=== PATIENT | female | born 1945 | race Two or more races ===

== ENCOUNTER 2023-12-28 17:06 | Inpatient (IN) | payer MEDICARE, OTHER ==
[~2023-12-28] VITALS: Ht 157.5 cm; Wt 68.6 kg
[~2023-12-28 17:06] MED LIST: ASPI81CH59 PO; ATOR10TA PO; CALCCAP6 PO; CARV3.1240 PO; CLON0.1T PO; DOCU-94 PO; FURO40TA4 PO; INSU100I45 SC; INSU1INJ19 SC; LOSA-535 PO; MULT-443 PO; SEVE800T10 PO; TICA90TA PO
[2023-12-28 17:18] VITALS: PULSE 141; RESP 16; O2SAT 96
[2023-12-28] MEDS: dilTIAZem 25 MG/5 ML VIAL IV ONE ×2 (17:18→17:47)
--- NOTE | 2023-12-28 17:26 | ED.PDOC ---
HPI Comments 78Y F with PMHx DM, HTN, ESRD, and COPD presents to ED via EMS for chief complaint palpitations. Per EMS, pt was at dialysis where they removed 500mL when pt became hypotensive with diastolic BP 31. Upon EMS arrival, EKG showed Afib with RVR. Family on scene is not aware of any previous dx of Afib. Pt denies chest pain, runny nose, sore throat, and all other flu-like symptoms. Pt is not on blood thinners. 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, Medications, Allergies Allergies: Coded Allergies: Amoxicillin (Verified Allergy, Unknown, 12/28/23) Clarithromycin (Verified Allergy, Unknown, 12/28/23) Information Source: Patient, Emergency Med Personnel Mode of Arrival: EMS Brought in by: EMS Severity: Severe Timing: Hours Duration: Since onset Prehospital treatment: 12 Lead EKG Cardiac Risk Factors: HTN, Diabetes PE Risk Factors: None History of: Other Modifying Factors: Nothing Associated Signs and Symptoms: Palpitations Past Medical History PAST MEDICAL HISTORY: COPD, DM, ESRD, HTN Surgical History: Unknown 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 Family History Family History: Unknown Social History Smoker: Unknown Alcohol: Unknown Drugs: Unknown Lives In: Home Constitutional: reports: weakness; denies: chills, diaphoresis, fatigue, fever, malaise, sweats, others EENTM: denies: blurred vision, double vision, ear bleeding, ear discharge, ear drainage, ear pain, ear ringing, eye pain, eye redness, hearing loss, mouth pain, mouth swelling, nasal discharge, nose bleeding, nose congestion, nose pain, photophobia, tearing, throat pain, throat swelling, voice changes, others Respiratory: denies: cough, hemoptysis, orthopnea, SOB at rest, shortness of breath, SOB with excertion, stridor, wheezing, others Cardiovascular: denies: chest pain, dizzy spells, diaphoresis, Dyspnea on exertion, edema, irregular heart beat, left arm pain, lightheadedness, palpitations, PND, syncope, others Gastrointestinal: denies: abdomen distended, abdominal pain, blood streaked bowels, constipated, diarrhea, dysphagia, difficulty swallowing, hematemesis, melena, nausea, poor appetite, poor fluid intake, rectal bleeding, rectal pain, vomiting, others Genitourinary: denies: abnormal vagina bleeding, burning, dyspareunia, dysuria, flank pain, frequency, hematuria, incontinence, pain, , vagina discharge, urgency, others Neurological: denies: dizziness, fainting, headache, left sided numbness, left sided weakness, numbness, paresthesia, pre-existing deficit, right sided numbness, right sided weakness, seizure, speech problems, tingling, tremors, weakness, others Musculoskeletal: denies: back pain, gout, joint pain, joint swelling, muscle pain, muscle stiffness, neck pain, others Integumetry: denies: bruises, change in color, change in hair/nails, dryness, laceration, lesions, lumps, rash, wounds, others Allergic/Immunocompromised: denies: Difficulty Healing, Frequent Infections, Hives, Itching, others Hematologic/Lymphatic: denies: anemia, blood clots, easy bleeding, easy bruising, swollen glands, others Endocrine: denies: excessive hunger, excessive sweating, excessive thirst, excessive urination, flushing, intolerance to cold, intolerance to heat, unexplained weight gain, unexplained weight loss, others Psychiatric: denies: anxiety, bipolar disorder, depression, hopeless, panic disorder, schizophrenia, sleepless, suicidal, others All Other Systems: Reviewed and Negative Physical Exam General Appearance: No Apparent Distress, Normal, Thin, Other HEENT: Normal ENT Inspection, Pharynx Normal, TMs Normal Neck: Full Range of Motion, Non-Tender, Normal, Normal Inspection Respiratory: Chest Non-Tender, Lungs Clear, No Accessory Muscle Use, No Respiratory Distress, Normal Breath Sounds Cardiovascular: No Edema, No JVD, No Murmur, No Gallop, Normal Peripheral Pulses, Tachycardia Breast Exam: Deferred Gastrointestinal: No Organomegaly, Non Tender, No Pulsatile Mass, Normal Bowel Sounds, Soft Genitalia: Deferred Pelvic: Deferred Rectal: Deferred Extremities: No calf tenderness, Normal capillary refill, Normal inspection, Normal range of motion, Non-tender, No pedal edema Musculoskeletal : Apperance: Normal Neurologic: Alert, treater helper II-XII nml as Tested, No Motor Deficits, Normal Affect, Normal Mood, No Sensory Deficits Cerebellar Function: Normal Reflexes: Normal Skin: Dry, Other (ashy cantu skin color) Lymphatic: No Adenopathy EKG EKG : Pulse Rate (adult): 61 [place]: Normal Cardiac Rhythm: Afib Comments significant ST depressions in all leads Was a procedure done? Was a procedure done?: No CP Differential Dx Differential Diagnosis: A-fib X-Ray, Labs, Meds, VS Vital Signs Date Time Temp Pulse Resp B/P (MAP) Pulse Ox O2 Delivery O2 Flow Rate FiO2 12/28/23 17:26 61 12/28/23 17:18 98.2 141 16 94/24 (47) 96 98.2 12/28/23 17:18 141 16 96 Room Air* 0 21 12/28/23 17:12 98.2 152 22 96/45 (62) 96 12/28/23 17:06 161 Lab Test 12/28/23 17:29 Range/Units Sodium Level 134 L 136-145 mmol/L Potassium Level 3.3 L 3.5-5.1 mmol/L Chloride Level 97 L 98-107 mmol/L Carbon Dioxide Level 28 20-31 mmol/L Anion Gap 9 5-15 Blood Urea Nitrogen 9 9-23 mg/dL Creatinine 2.09 H 0.550-1.02 mg/dL Glomerular Filtration Rate Calc 24 >90 mL/min BUN/Creatinine Ratio 4.3 L 10.0-20.0 Serum Glucose 175 H 74-106 mg/dL Calcium Level 9.5 8.7-10.4 mg/dL Magnesium Level 2.1 1.6-2.6 mg/dL Total Bilirubin 0.3 0.2-1.0 mg/dL Aspartate Amino Transferase (AST) 29 13-40 U/L Alanine Aminotransferase (ALT) < 9 7-40 U/L Alkaline Phosphatase 148 H 46-116 U/L Troponin I High Sensitivity 99 *H </=34 ng/L Total Protein 7.0 5.7-8.2 g/dL Albumin 3.9 3.2-4.8 g/dL Thyroid Stimulating Hormone (TSH) Pending Current Medications Medications (Trade) Dose Ordered Sig/Jens Route Start Time Stop Time Status Last Admin Diltiazem HCl (Cardizem Injection) 15 mg ONCE ONCE IV 12/28/23 17:15 12/28/23 17:16 DC 12/28/23 17:18 Diltiazem HCl (Cardizem Injection) 15 mg ONCE ONCE IV 12/28/23 17:30 12/28/23 17:31 DC 12/28/23 17:47 Time of 1ST Reevaluation: 17:40 Reevaluation 1ST: Unchanged Time of 2ND Reevaluation: 18:00 Reevaluation 2ND: Improved Patient Education/Counseling: Diagnosis, Treatment Family Education/Counseling: No Family Present Departure 1 Departure Time of Disposition: 18:00 Impression: Primary Impression: Atrial fibrillation with RVR Additional Impression: Hypokalemia Disposition: ADMITTED INPATIENT Admit to: [facility] Condition: Guarded Critical Care Note Critical Care Time?: Yes (35 min-critical care time only) Critical care comment: Patient was immediately assessed upon her arrival to the ER. As she was found to be in AFib RVR. Patient was given diltiazem IV. She required multiple reassessments and multiple doses of diltiazem due to her continuous AFib. I placed her on diltiazem drip. At this time chemistries returned with mild hypokalemia at 3.3 otherwise unremarkable. CBC is pending. However at this time patient would benefit from inpatient admission. Hospitalist consult has been placed. Stability Stability form required: No Heart Score Heart Score: Heart Score Response (Comments) Value History Slightly Suspicious 0 EKG Repolarization Disturb 1 Age >65 2 Risk Factors >3 or Hx ASHD 2 Troponin 1-2 x's Normal limit 1 Total 6 I personally scribed for FAITH BUTLER MD ([email or web address]) on 12/28/23 at 17:26. Electronically submitted by Samira Bonds ([email or web address]). I personally scribed for FAITH BUTLER MD ([email or web address]) on 12/28/23 at 17:28. Electronically submitted by Samira Bonds ([employer]). FAITH BUTLER MD Dec 28, 2023 17:26
[2023-12-28 18:00] LABS: Albumin 3.9 g/dL (3.2-4.8); Alkaline Phosphatase 148 U/L (46-116); Anion Gap 9 (5-15); Aspartate Aminotransferase 29 U/L (13-40); BUN/Creatinine Ratio 4.3 (10.0-20.0); Bilirubin, Total 0.3 mg/dL (0.2-1.0); Blood Urea Nitrogen 9 mg/dL (9-23); Calcium 9.5 mg/dL (8.7-10.4); Carbon Dioxide 28 mmol/L (20-31); Chloride 97 mmol/L (98-107); Glucose 175 mg/dL (74-106); Magnesium 2.1 mg/dL (1.6-2.6); Potassium 3.3 mmol/L (3.5-5.1); Sodium 134 mmol/L (136-145)
[2023-12-28 18:06] LABS: Alanine Aminotransferase < 9 U/L (7-40)
--- NOTE | 2023-12-28 18:27 | DVH ---
EXAM: XY CHEST PORTABLE TECHNIQUE: Single frontal chest radiograph CLINICAL HISTORY: chest pain COMPARISON: None Findings/Impression: Frontal chest radiograph demonstrates no acute osseous or superficial soft tissue abnormalities. The trachea is midline. Mild cardiomegaly. No pneumothorax, pleural effusions, or consolidations.
[2023-12-28] MEDS: dilTIAZem 125mg/125ml BAG KIT 125 ML IV ONE (18:34)
[2023-12-28 18:42] LABS: Basophils # (auto) 0.1 10 ^3/uL (0-0.2); Basophils % (auto) 0.4 % (0.0-2.0); Eosinophils # (auto) 0.1 10 ^3/uL (0-0.8); Eosinophils % (auto) 0.6 % (0.0-7.0); Hematocrit 30.1 % (36.0-46.0); Hemoglobin 10.1 g/dL (12.2-16.2); Lymphocytes # (auto) 0.8 10 ^3/uL (0.4-5.4); Lymphocytes % (auto) 4.9 % (10.0-50.0); Mean Corpuscular Hgb Conc. 33.7 g/dL (32.0-36.0); Monocytes # (auto) 0.8 10 ^3/uL (0-1.3); Monocytes % (auto) 5.4 % (0.0-12.0); Neutrophils # (auto) 13.9 10 ^3/uL (1.6-8.6); Neutrophils % (auto) 88.7 % (37.0-80.0); Platelet Count (auto) 325 10^3/uL (140-450); Red Blood Cells 3.27 10^6/uL (4.0-5.20); White Blood Cell 15.6 10^3/uL (4.4-10.8)
[2023-12-28] MEDS: AMIODARONE BOLUS KIT 100 ML IV ONE (18:51)
[2023-12-28] MEDS: AMIODARONE 450mg/250ml AE 250 ML IV SCH (19:00)
[2023-12-28 20:26] VITALS: PULSE 130; RESP 21; O2SAT 100
[2023-12-28] MEDS ORDERED: DOCUSATE SOD 100 MG CAP PO PRN (21:15)
[2023-12-28] MEDS ORDERED: HYDROcodone-ACET 5/325MG TAB PO PRN (21:15)
[2023-12-28] MEDS ORDERED: hydrALAZINE HCL 20 MG/ML VL IV PRN (21:15)
[2023-12-28] MEDS: POTASSIUM CHL 20 Meq TABLET PO ONE (21:15)
[2023-12-28] MEDS ORDERED: VANCOMYCIN PER PHARMACY 0 MG IV SCH (21:15)
[2023-12-28] MEDS ORDERED: DEXTROSE (50%) 50ML SYRG IV PRN (21:15)
[2023-12-28] MEDS ORDERED: ONDANSETRON HCL 4 MG/2 ML VIAL IV PRN (21:15)
[2023-12-28] MEDS: ASPirin 81 mg TAB PO ONE (21:41)
[2023-12-28] MEDS ORDERED: VANCOMYCIN 1GM/200ML PREMIX 200 ML IV ONE (21:45)
[2023-12-28] MEDS: METOPROLOL TARTRATE 25 MG TAB PO SCH (21:48)
[2023-12-28] MEDS: VANCOMYCIN 1GM/200ML PREMIX 200 ML IV ONE (21:53)
[2023-12-28] MEDS: SODIUM CHLOR 0.9% PF (SALINE LOCK) 10ML VIAL/SYR IV SCH (21:54)
[2023-12-28] MEDS: ACCU-CHEK COMFORT CURVE STRIP VI SCH (21:57)
[2023-12-28] MEDS: InsuLIN REG 1unit/0.01ml Soln (100units/ml) SC SCH (22:23)
[2023-12-28] MEDS: METOPROLOL TARTRATE 1MG/1ML-5ML VIAL IV SCH (22:50)
[2023-12-28] MEDS ORDERED: NITROGLYCERIN 0.4 MG SL TAB SL PRN (23:15)
[2023-12-28] MEDS ORDERED: MORPHINE SULFATE INJ 2 MG/ml SYRG IV PRN (23:15)
--- NOTE | 2023-12-28 23:17 | DVHHP2 ---
History of Present Illness Reason for Visit: Atrial fibrillation with RVR History of Present Illness The patient is a 78 years old female past medical history of DM, COPD, hypertension, and ESRD on hemodialysis who presented to [facility] ED with complaint of palpitations. Patient was at dialysis today where they removed 500 mL and suddenly became hypotensive with diastolic BP at 31 so EMS were called. When division controller arrived on the scene, patient's EKG showed atrial fibrillation with RVR, en route to our facility. Patient was seen and evaluated in the ED, laboratory data shows WBC 15.6, hemoglobin 10.1, hematocrit 30.1 platelets 325, sodium 134, potassium 3.3, BUN 9, creatinine 2.09, glucose 175, troponin 220 trending up, TSH 2.06, blood pressure 130/59, heart rate 161 trending down to 112, temperature 98.2 F, O2 saturation 99% on oxygen. Chest x- ray shows no acute cardiopulmonary disease. Patient was started on amiodarone drip, on heparin drip, please see medication orders section in the computer. On my assessment, patient denies chest no headache, dizziness, no diaphoresis, no shortness of breaths, no nausea, no vomiting, no fever, no chills. Patient was admitted for further evaluation and medical management. Past Medical History COPD, DM, ESRD on HD, HTN Past Surgical History Dialysis access Family History Reviewed, noncontributory to the management of this case. Past Social History The patient lives at home, denies smoking, alcohol or illicit drugs abuse. Review of Systems Constitutional: Yes: Weakness; No: Fever, Chills, Sweats, Malaise, Other Eyes: No: Pain, Vision change, Conjunctivae inflammation, Eyelid inflammation, Other, Redness ENT: No: Ear pain, Ear discharge, Nose pain, Nose discharge, Nose congestion, Mouth pain, Mouth swelling, Throat pain, Throat swelling, Other Respiratory: No: Cough, Dry, Shortness of breath, SOB with excertion, Wheezing, Hemoptysis, Pleuritic Pain, Sputum, Wheezing, Other Cardiovascular: Palpitations; No: Chest Pain, Orthopnea, Paroxysmal Noc. Dyspnea, Edema, Lt Headedness, Other Gastrointestinal: No: Nausea, Vomiting, Abdominal Pain, Diarrhea, Constipation, Melena, Hematochezia, Other Genitourinary: No Dysuria, No Frequency, No Incontinence, No Hematuria, No Retention, No Other Musculoskeletal: No: other, neck pain, shoulder pain, arm pain, back pain, hand pain, leg pain, foot pain Skin: No: Rash, Lesions, Jaundice, Bruising, Other Neurological: No: Weakness, Numbness, Incoordination, Change in speech, Confusion, Seizures, Other Allergies: Coded Allergies: Amoxicillin (Verified Allergy, Unknown, 12/28/23) Clarithromycin (Verified Allergy, Unknown, 12/28/23) Medications Current Medications Medications Dose Ordered Sig/Jens Route Start Time Stop Time Status Last Admin Dose Admin Amiodarone HCl 250 ml @ 33.333 mls/ hr Q7H30M IV 12/28/23 19:00 12/29/23 00:59 12/28/23 19:00 33.333 MLS/HR Amiodarone HCl 250 ml @ 16.667 mls/ hr Q15H IV 12/29/23 01:00 Hydralazine HCl 10 mg Q6HP PRN IV 12/28/23 21:15 Metoprolol Tartrate 25 mg BID PO 12/28/23 22:00 12/28/23 21:48 25 MG Aspirin 81 mg DAILY PO 12/29/23 10:00 Vancomycin HCl 0 ml @ 0 mls/hr UD IV 12/28/23 21:15 UNV Diagnostic Test (Pha) 1 strip ACHS 12/28/23 22:00 12/28/23 21:57 1 STRIP Insulin Human Regular HS SC 12/28/23 22:00 12/28/23 22:23 6 UNITS Insulin Human Regular AC SC 12/29/23 07:00 Dextrose 50 ml UD PRN IV 12/28/23 21:15 Sodium Chloride 10 ml Q8HR IV 12/28/23 22:00 12/28/23 21:54 10 ML Acetaminophen/ Hydrocodone Bitart 1 tab Q4HP PRN PO 12/28/23 21:15 Ondansetron HCl 4 mg Q4HP PRN IV 12/28/23 21:15 Docusate Sodium 100 mg BIDPRN PRN PO 12/28/23 21:15 Acetaminophen 650 mg Q6HP PRN PO 12/28/23 21:15 Exam Vital Signs Vital Signs Date Time Temp Pulse Resp B/P (MAP) Pulse Ox O2 Delivery O2 Flow Rate FiO2 12/28/23 23:15 115 133/70 12/28/23 22:07 15 100 12/28/23 21:00 98.8 98.8 12/28/23 20:26 Room Air* 3 N/A Nasal Cannula* General Appearance: Alert, Oriented X3, Cooperative, No acute distress HEENT: Atraumatic, PERRLA, EOMI, Mucous membr. moist/pink Respiratory: Clear to auscultation, Normal air movement Cardiovascular: Regular rate, Normal S1, Normal S2, No murmurs Abdominal: Normal bowel sounds, Soft, No tenderness, No hepatospenomegaly, No masses Extremities: No clubbing, No cyanosis, No edema, Normal pulses, No tenderness/swelling Skin: No rashes, No breakdown, No significant lesion Neuro: Normal speech, Normal tone, Sensation intact, Cranial nerves 3-12 NL, Reflexes 2+, Other (Generalized weakness) Psych/Mental Status: Mental status NL, Mood NL Labs/Xrays Labs Test 12/28/23 21:57 12/28/23 20:39 12/28/23 18:23 12/28/23 17:29 Range/Units POC Glucose 273 H 70-106 mg/dl Troponin I High Sensitivity 1318 *H </=34 ng/L White Blood Count 15.6 H 4.4-10.8 10^3/uL Red Blood Count 3.27 L 4.0-5.20 10^6/uL Hemoglobin 10.1 L 12.2-16.2 g/dL Hematocrit 30.1 L 36.0-46.0 % Mean Corpuscular Volume 92.0 80.0-100.0 fL Mean Corpuscular Hemoglobin 31.0 28.0-32.0 pg Mean Corpuscular Hemoglobin Concent 33.7 32.0-36.0 g/dL Red Cell Distribution Width 16.0 H 11.8-14.3 % Platelet Count 325 140-450 10^3/uL Mean Platelet Volume 7.1 6.9-10.8 fL Neutrophils (%) (Auto) 88.7 H 37.0-80.0 % Lymphocytes (%) (Auto) 4.9 L 10.0-50.0 % Monocytes (%) (Auto) 5.4 0.0-12.0 % Eosinophils (%) (Auto) 0.6 0.0-7.0 % Basophils (%) (Auto) 0.4 0.0-2.0 % Neutrophils # (Auto) 13.9 H 1.6-8.6 10 ^3/uL Lymphocytes # (Auto) 0.8 0.4-5.4 10 ^3/uL Monocytes # (Auto) 0.8 0-1.3 10 ^3/uL Eosinophils # (Auto) 0.1 0-0.8 10 ^3/uL Basophils # (Auto) 0.1 0-0.2 10 ^3/uL Nucleated Red Blood Cells 0.0 % Sodium Level 134 L 136-145 mmol/L Potassium Level 3.3 L 3.5-5.1 mmol/L Chloride Level 97 L 98-107 mmol/L Carbon Dioxide Level 28 20-31 mmol/L Anion Gap 9 5-15 Blood Urea Nitrogen 9 9-23 mg/dL Creatinine 2.09 H 0.550-1.02 mg/dL Glomerular Filtration Rate Calc 24 >90 mL/min BUN/Creatinine Ratio 4.3 L 10.0-20.0 Serum Glucose 175 H 74-106 mg/dL Calcium Level 9.5 8.7-10.4 mg/dL Magnesium Level 2.1 1.6-2.6 mg/dL Total Bilirubin 0.3 0.2-1.0 mg/dL Aspartate Amino Transferase (AST) 29 13-40 U/L Alanine Aminotransferase (ALT) < 9 7-40 U/L Alkaline Phosphatase 148 H 46-116 U/L Total Protein 7.0 5.7-8.2 g/dL Albumin 3.9 3.2-4.8 g/dL Thyroid Stimulating Hormone (TSH) 2.06 0.55-4.78 uIU/mL PATIENT: SARAH LOWERYACCT: [id number] UNIT: [id number] : 1945 LOC: ER ROOM / BED: / AGE / SEX: 78 / F ADM STATUS: REG ER SERVICE [id number] ORDERING PHYSICIAN: FAITH BUTLER MD PROCEDURE(s): CXRP - CHEST PORTABLE REASON: chest pain ORDER NUMBER(s): [id number], ACCESSION NUMBER(s): [id number] EXAM: XY CHEST PORTABLE TECHNIQUE: Single frontal chest radiograph CLINICAL HISTORY: chest pain COMPARISON: None Findings/Impression: Frontal chest radiograph demonstrates no acute osseous or superficial soft tissue abnormalities. The trachea is midline. Mild cardiomegaly. No pneumothorax, pleural effusions, or consolidations. Assessment/Plan Assessment/Plan Atrial fibrillation with RVR Hypokalemia Generalized weakness Leukocytosis, unspecified End-stage renal disease on hemodialysis Plan 1. Admit to telemetry unit 2. Breathing treatment 3. Pain control management 4. IV antibiotic management 5. Management of fluids and electrolytes 6. Consultation for Cardiology/Nephrology 7. Diagnostic test chest x-ray 8. DVT prophylaxis-on Eliquis 9. Repeat labs CBC, CMP in a.m. 10. Home medication reviewed and reconciled 11. Continue with current medical management 12. Treatment plan discussed with patient and RN. Patient verbalized understanding. Plan discussed with: Patient, Other (RN) My Orders Orders - AIRAM BRISENO DNP Procedure Category Date Status Time Consistent DIET 12/29/23 Transmitted Carb(Ccho)Diabetes Breakfast *Dr. Allie Zepeda -Da CONS 12/28/23 Transmitted Fabiola 21:09 Hydralazine Injection PHA 12/28/23 In Process (Apresoline Inject 21:15 Blood Culture RHODA 12/28/23 In Process 21:09 Metoprolol Tartrate PHA 12/28/23 In Process Tablet (Lopressor Ta 22:00 Aspirin Tablet PHA 12/29/23 In Process 10:00 Troponin-I Hs LAB 12/29/23 Verified 00:09 Troponin-I Hs LAB 12/29/23 Verified 04:00 Vancomycin Per PHA 12/28/23 Pending Pharmacy 21:15 * Cardiology Consult CONS 12/28/23 Transmitted 21:09 Glucose Blood PHA 12/28/23 In Process (Accu-Chek Comfort 22:00 Insulin R (Human) PHA 12/28/23 In Process (Insulin R) 22:00 Insulin R (Human) PHA 12/29/23 In Process (Insulin R) 07:00 Dextrose 50% Syringe PHA 12/28/23 In Process 21:15 Allergies HENOK 12/28/23 In Process 21:09 Code Status CODE 12/28/23 Transmitted 21:09 Sodium Chloride Lock PHA 12/28/23 In Process (Saline Lock Ns) 22:00 Oxygen Per Hour RT 12/28/23 Transmitted 21:09 Hydrocodone-Acet PHA 12/28/23 In Process 5/325mg Tab ([place] 21:15 Ondansetron Hcl PHA 12/28/23 In Process (Zofran) 21:15 Docusate Sodium [facility] 12/28/23 In Process Capsule (Colace 21:15 Fall Risk Precautions [facility] 12/28/[address] 21:09 Complete Blood Count LAB 12/29/23 Verified 04:00 Comprehensive LAB 12/29/23 Verified Metabolic Panel 04:00 Condition: Serious HENOK 12/28/23 In Process 21:09 Acetaminophen Tablet [facility] 12/28/23 In Process (Tylenol Tablet) 21:15 Sequential [facility] 12/28/23 In Process Compression Device Admit ADMIT 12/28/23 Verified 23:15 Nitroglycerin [facility] 12/28/23 Verified Sublingual (Ntrostat 23:15 Morphine Sulfate [facility] 12/28/23 Verified Injection 23:15 Stat Ekg For Chest [facility] 12/28/23 Verified Pain 23:15 Automatic Head Sawyer For [facility] 12/28/23 Verified 24 Hours 23:15 Emergency Dysrhythmia [facility] 12/28/23 Verified Protocol 23:15 Rhythm Strips Once [facility] 12/28/23 Verified Every Shift 23:15 Oxygen By Nasal RT 12/28/23 Verified Cannula 23:15 Problem List: (1) Atrial fibrillation with RVR (2) Hypokalemia (3) Generalized weakness (4) Leukocytosis, unspecified (5) End-stage renal disease on hemodialysis Date of Service: Dec 28, 2023 Billing Provider: AIRAM BRISENO DNP Common Visit Codes: 24180-OCSOXYD INP/OBS CARE (HIGH) AIRAM BRISENO DNP Dec 28, 2023 23:16
[2023-12-29] VITALS (7 sets, daily range): BP systolic 115–154; BP diastolic 38–71; PULSE 76–122; RESP 18–20; TEMP 97.8–98.7; O2SAT 94–100
[2023-12-29] MEDS: DIGOXIN (250MCG/ML) 2 ML AMPULE IV ONE (00:30)
[2023-12-29] MEDS: AMIODARONE 450mg/250ml AE 250 ML IV SCH (01:09)
--- NOTE | 2023-12-29 02:18 | ECG ---
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
[2023-12-29 02:58] LABS: Basophils # (auto) 0.1 10 ^3/uL (0-0.2); Basophils % (auto) 0.6 % (0.0-2.0); Eosinophils # (auto) 0 10 ^3/uL (0-0.8); Eosinophils % (auto) 0.2 % (0.0-7.0); Hematocrit 30.2 % (36.0-46.0); Lymphocytes # (auto) 1.5 10 ^3/uL (0.4-5.4); Lymphocytes % (auto) 9.1 % (10.0-50.0); Mean Corpuscular Hemoglobin 30.7 pg (28.0-32.0); Mean Corpuscular Hgb Conc. 33.1 g/dL (32.0-36.0); Mean Corpuscular Volume 92.8 fL (80.0-100.0); Monocytes # (auto) 1.3 10 ^3/uL (0-1.3); Monocytes % (auto) 7.7 % (0.0-12.0); Neutrophils # (auto) 14.1 10 ^3/uL (1.6-8.6); Neutrophils % (auto) 82.4 % (37.0-80.0); Platelet Count (auto) 292 10^3/uL (140-450); Red Blood Cells 3.25 10^6/uL (4.0-5.20); Red Cell Distribution Width 16.3 % (11.8-14.3); White Blood Cell 17.1 10^3/uL (4.4-10.8)
[2023-12-29 03:13] LABS: INR 1.11 (0.9-1.15); Prothrombin Time 11.7 sec (9.3-11.8)
[2023-12-29] MEDS: HEPARIN DRIP/D5W 100UNITS/ML 250 ML IV SCH ×3 (03:56→23:43)
[2023-12-29] MEDS ORDERED: HEPARIN SODIUM (PORCINE) 5000 UNITS/ML 1ML VIAL IV ONE (04:00)
[2023-12-29] MEDS: HEPARIN SODIUM (PORCINE) 5000 UNITS/ML 1ML VIAL IV ONE (04:01)
[2023-12-29] MEDS: ACETAMINOPHEN 325 MG TAB PO PRN (04:51)
[2023-12-29] MEDS: InsuLIN REG 1unit/0.01ml Soln (100units/ml) SC SCH (06:29)
[2023-12-29 07:16] LABS: Basophils # (auto) 0.1 10 ^3/uL (0-0.2); Basophils % (auto) 0.4 % (0.0-2.0); Eosinophils # (auto) 0.1 10 ^3/uL (0-0.8); Eosinophils % (auto) 0.7 % (0.0-7.0); Hematocrit 29.6 % (36.0-46.0); Hemoglobin 9.6 g/dL (12.2-16.2); Lymphocytes # (auto) 1.7 10 ^3/uL (0.4-5.4); Lymphocytes % (auto) 10.3 % (10.0-50.0); Mean Corpuscular Hemoglobin 30.7 pg (28.0-32.0); Mean Corpuscular Hgb Conc. 32.4 g/dL (32.0-36.0); Mean Corpuscular Volume 94.9 fL (80.0-100.0); Monocytes # (auto) 1.3 10 ^3/uL (0-1.3); Monocytes % (auto) 7.7 % (0.0-12.0); Neutrophils # (auto) 13.5 10 ^3/uL (1.6-8.6); Neutrophils % (auto) 80.9 % (37.0-80.0); Nucleated Red Blood Cells % 0.1 %; Platelet Count (auto) 284 10^3/uL (140-450); Red Blood Cells 3.12 10^6/uL (4.0-5.20); Red Cell Distribution Width 16.2 % (11.8-14.3); White Blood Cell 16.6 10^3/uL (4.4-10.8)
[2023-12-29 07:43] LABS: Alanine Aminotransferase 66 U/L (7-40); Albumin 3.9 g/dL (3.2-4.8); Alkaline Phosphatase 145 U/L (46-116); Anion Gap 11 (5-15); Aspartate Aminotransferase 117 U/L (13-40); BUN/Creatinine Ratio 5.2 (10.0-20.0); Blood Urea Nitrogen 15 mg/dL (9-23); Calcium 9.4 mg/dL (8.7-10.4); Carbon Dioxide 27 mmol/L (20-31); Chloride 96 mmol/L (98-107); Glucose 206 mg/dL (74-106); Potassium 3.7 mmol/L (3.5-5.1); Sodium 134 mmol/L (136-145)
[2023-12-29 07:44] LABS: Bilirubin, Total 0.2 mg/dL (0.2-1.0); Total Protein 7.5 g/dL (5.7-8.2)
--- NOTE | 2023-12-29 08:44 | ECG ---
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
[2023-12-29 09:24] LABS: Magnesium 1.9 mg/dL (1.6-2.6)
[2023-12-29] MEDS: ASPirin 81 mg TAB PO SCH (09:52)
--- NOTE | 2023-12-29 10:29 | DVHINCON2 ---
Date Seen: Dec 29, 2023 Referring Physician ÁLVARO Leo Reason for Consultation A-fib with RVR History of Present Illness This is a Hebrew-speaking mostly female who presented to the emergency room via EMS with a chief complaint hemodynamic instability. At time of assessment patient was found A&O x3 but unable to recall events preceding to admission. Per daughter over the phone, the patient was receiving a hemodialysis treatment when she was found with a fluctuating blood pressure and heart rate for which medical staff called 911. Upon EMS arrival the patient was found to be tachycardic undergoing a 12 lead electrocardiogram revealing an atrial fibrillation rhythm with rapid ventricular rate. Daughter denies a history of tachyarrhythmias in the past. Reports a recent admission to [facility] with the patient underwent emergent cardiac catheterization and coronary angiogram status post PTCA including one AZUL and currently on dual antiplatelet therapy with Brilinta. Follows up with primary [facility] in [place], [place]. Troponin levels are trending up with latest > 6,000 ng/L. Multiple 12 lead electrocardiogram revealing atrial fibrillation rhythm with rapid ventricular rate and non-discernible ischemia present. C/o left hand pain only. Denies chest pain, palpitations, SOB, diaphoresis, dizziness, or syncopal events. Significant medical history includes unspecified congestive heart failure, severe coronary artery disease status post PTCAs x 3 including 3DES, hypertension, dyslipidemia, insulin-dependent diabetes mellitus, ESRD on hemodialysis, and peripheral neuropathy. Past Medical History Past medical history reviewed. No other significant than mentioned above. Past Surgical History PTCAs x3 including 3 AZUL Left upper extremity AV fistula Family History: Patient reports no known family medical history. Family History Family history reviewed. Social History Denies the use of illicit drugs, alcohol, or tobacco use. Allergies: Coded Allergies: Amoxicillin (Verified Allergy, Unknown, 12/28/23) Clarithromycin (Verified Allergy, Unknown, 12/28/23) Home Meds Home medications reviewed. Current Medications Current Medications Medications (Trade) Dose Ordered Sig/Jens Route PRN Reason Start Time Stop Time Status Last Admin Amiodarone HCl 250 ml @ 33.333 mls/ hr Q7H30M IV 12/28/23 19:00 12/29/23 00:59 DC 12/28/23 19:00 Amiodarone HCl 250 ml @ 16.667 mls/ hr Q15H IV 12/29/23 01:00 12/29/23 01:09 Hydralazine HCl (Apresoline Injection) 10 mg Q6HP PRN IV SBP>150 12/28/23 21:15 Metoprolol Tartrate (Lopressor Tablet) 25 mg BID PO 12/28/23 22:00 12/29/23 09:53 Aspirin 81 mg DAILY PO 12/29/23 10:00 12/29/23 09:52 Vancomycin HCl 0 ml @ 0 mls/hr UD IV 12/28/23 21:15 Diagnostic Test (Pha) (Accu-Chek Comfort Curve T) 1 strip ACHS 12/28/23 22:00 12/28/23 21:57 Insulin Human Regular (InsuLIN R) HS SC 12/28/23 22:00 12/28/23 22:23 Insulin Human Regular (InsuLIN R) AC SC 12/29/23 07:00 12/29/23 06:29 Dextrose 50 ml UD PRN IV Blood Sugar LESS THAN 60 12/28/23 21:15 Sodium Chloride (Saline Lock Ns) 10 ml Q8HR IV 12/28/23 22:00 12/29/23 06:20 Acetaminophen/ Hydrocodone Bitart ([place] 5/325MG Tab) 1 tab Q4HP PRN PO MODERATE PAIN (4-6 PAIN SCALE) 12/28/23 21:15 Ondansetron HCl (Zofran) 4 mg Q4HP PRN IV NAUSEA / VOMITING 12/28/23 21:15 Docusate Sodium (Colace Capsule) 100 mg BIDPRN PRN PO FOR CONSTIPATION 12/28/23 21:15 Acetaminophen (Tylenol Tablet) 650 mg Q6HP PRN PO PAIN SCALE 1-3 OR TEMP>100.4 12/28/23 21:15 12/29/23 04:51 Metoprolol Tartrate (Lopressor) 5 mg Q5M IV 12/28/23 22:45 12/28/23 22:56 DC 12/28/23 22:55 Nitroglycerin (Ntrostat Sublingual) 0.4 mg Q5MINP PRN SL FOR CHEST PAIN 12/28/23 23:15 Morphine Sulfate 2 mg Q30M PRN IV FOR CHEST PAIN 12/28/23 23:15 Heparin Sodium/ Dextrose 250 ml @ 8 mls/hr Q24H IV 12/29/23 02:30 12/29/23 03:56 Review of Systems Constitutional: No symptom reported Ears, Nose, & Throat: No symptom reported Eyes: No symptom reported Neurological: No symptoms reported Pulmonary/Respiratory: No symptom reported Cardiovascular: No symptom reported Gastrointestinal: No symptom reported Genitourinary: No symptom reported Musculoskeletal: Left hand pain Skin: No symptom reported Psychiatric: No symptom reported Endocrine: No symptom reported Hemotologic/Lymphatic: No symptom reported Vital Signs Vital Signs Date Time Temp Pulse Resp B/P (MAP) Pulse Ox O2 Delivery O2 Flow Rate FiO2 12/29/23 09:53 109 154/71 12/29/23 02:30 19 95 Nasal Cannula* 3 32 12/28/23 23:47 98.7 98.7 Physical Exam General Appearance: Cooperative. Well developed. Well nourished. In no acute distress Head Exam: Normal inspection Neck Exam: Normal inspection. Non-tender. Normal alignment Pulmonary/Respiratory: Chest non-tender. Diminished bilateral breath sounds Cardiovascular/Chest: Irregularly irregular rate and rhythm. Atrial fibrillation with RVR. No murmurs. No JVD. Peripheral Pulses: 2+ Radial (R). 2+ Radial (L). 2+ Pedal (R). 2+ Pedal (L) Abdominal Exam: Normal bowel sounds. Soft. Nontender. No hepatospenomegaly. No masses Ankle Exam: Negative ankle edema Lower extremities: Negative lower extremity edema Neuro/Mental Status: A&O x3. Coherent, poor historian Thoughts/Psych: Normal thought pattern. Appropriate mood and affect. Pleasant Appearance: In no acute distress Skin Exam: Normal inspection. Normal color. Warm. Dry Labs/Diagnostic Data Labs Test 12/29/23 10:05 12/29/23 06:30 12/29/23 05:35 12/28/23 17:29 Range/Units White Blood Count 16.6 H 4.4-10.8 10^3/uL Red Blood Count 3.12 L 4.0-5.20 10^6/uL Hemoglobin 9.6 L 12.2-16.2 g/dL Hematocrit 29.6 L 36.0-46.0 % Mean Corpuscular Volume 94.9 80.0-100.0 fL Mean Corpuscular Hemoglobin 30.7 28.0-32.0 pg Mean Corpuscular Hemoglobin Concent 32.4 32.0-36.0 g/dL Red Cell Distribution Width 16.2 H 11.8-14.3 % Platelet Count 284 140-450 10^3/uL Mean Platelet Volume 7.6 6.9-10.8 fL Neutrophils (%) (Auto) 80.9 H 37.0-80.0 % Lymphocytes (%) (Auto) 10.3 10.0-50.0 % Monocytes (%) (Auto) 7.7 0.0-12.0 % Eosinophils (%) (Auto) 0.7 0.0-7.0 % Basophils (%) (Auto) 0.4 0.0-2.0 % Neutrophils # (Auto) 13.5 H 1.6-8.6 10 ^3/uL Lymphocytes # (Auto) 1.7 0.4-5.4 10 ^3/uL Monocytes # (Auto) 1.3 0-1.3 10 ^3/uL Eosinophils # (Auto) 0.1 0-0.8 10 ^3/uL Basophils # (Auto) 0.1 0-0.2 10 ^3/uL Nucleated Red Blood Cells 0.1 % Sodium Level 134 L 136-145 mmol/L Potassium Level 3.7 3.5-5.1 mmol/L Chloride Level 96 L 98-107 mmol/L Carbon Dioxide Level 27 20-31 mmol/L Anion Gap 11 5-15 Blood Urea Nitrogen 15 9-23 mg/dL Creatinine 2.87 #H 0.550-1.02 mg/dL Glomerular Filtration Rate Calc 16 >90 mL/min BUN/Creatinine Ratio 5.2 L 10.0-20.0 Serum Glucose 206 H 74-106 mg/dL Calcium Level 9.4 8.7-10.4 mg/dL Magnesium Level 1.9 1.6-2.6 mg/dL Total Bilirubin 0.2 0.2-1.0 mg/dL Aspartate Amino Transferase (AST) 117 H 13-40 U/L Alanine Aminotransferase (ALT) 66 H 7-40 U/L Alkaline Phosphatase 145 H 46-116 U/L B-Type Natriuretic Peptide 843.81 0-100 pg/mL Total Protein 7.5 5.7-8.2 g/dL Albumin 3.9 3.2-4.8 g/dL Triglycerides Level 189 H < 150 mg/dL Cholesterol Level 144 < 200 mg/dL LDL Cholesterol 79 < 100 mg/dL HDL Cholesterol 32 L 40-59 mg/dL Random Vancomycin Level 17.0 H 5-10 ug/mL POC Glucose 189 H 70-106 mg/dl Thyroid Stimulating Hormone (TSH) 2.06 0.55-4.78 uIU/mL Assessment Atrial fibrillation with rapid ventricular rate, new onset NSTEMI, likely type 2 secondary to above Chronic compensated congestive heart failure, unspecified Coronary artery disease status post PTCA x3 AZUL Hypertension Dyslipidemia Insulin-dependent diabetes mellitus ESRD on HD Obesity Plan/Recommendation (Dr. Keller) Patient presents with new onset atrial fibrillation with rapid ventricular rate. Continue amiodarone drip per pharmacy protocol as well as heparin drip ([id number] Score 7, HAS-BLED Score 3) and transition to low-dose Eliquis therapy when appropriate. Continue single-antiplatelet therapy with Brilinta, lipid lowering agent, and beta-floyd given history of CAD with recent stent placement three weeks ago. Rate control, continue beta-floyd as tolerated and obtain a transthoracic echocardiogram to further assess cardiac function. Likely NSTEMI Type II as the patient presents with newly diagnosed tachyarrhythmia and cardiac symptom free with no discernible ischemia on ECG. Monitor ECG changes closely and notify. Continue nephrology recommendations. Thank you for allowing us to participate in this patient's care. Please call if you have any questions or concerns. This medical document was created using an electronic medical record system with voice recognition software and computerized dictation system. Although this document has been carefully reviewed, there might still be some phonetic and typographical errors. Occasional wrong-word or ``sound-alike substitutions may have occurred due to the inherent limitations of voice recognition software. These areas are purely typographical due to imperfections of the software programs and do not reflect any compromise in the patient's medical care. Please read the chart carefully and recognize, using context, where these substitutions have occurred. Plan discussed with: Patient, Daughter, Other Date of Service: Dec 29, 2023 Billing Provider: MICHAEL KELLER MD Cardiology Common Codes: 63784-[id number] INP/OBS CARE (High) RADHARAHEEMCARLY [facility] Dec 29, 2023 10:29
[2023-12-29 11:18] LABS: INR 1.06 (0.9-1.15); Partial Thromboplastin Time 42.6 SEC (24.5-34.5); Prothrombin Time 11.2 sec (9.3-11.8)
[2023-12-29] MEDS: TICAGRELOR 90 MG TAB PO ONE (11:30)
--- NOTE | 2023-12-29 12:47 | DVHINCON2 ---
Date of service: Dec 29, 2023 Referring Physician Ahmet Magallanes Reason for Consultation Dialysis History of Present Illness 78 Y/O F with history of ESRD on HD via left arm AVF, DM,HTN, COPD, and anemia of CKD was sent from dialysis center for hypotension during dialysis. In ER he was found to have Afib with RVR and was started on amiodarone drip and heparin drip. troponin initially 99 which has uptrended to 6679. CXR shows clear lungs. Nephrology consulted for maintenance of dialysis. Past Medical History ESRD on HD DM HTN COPD Anemia Past Surgical History AVF creation on left arm Allergies: Coded Allergies: Amoxicillin (Verified Allergy, Unknown, 12/28/23) Clarithromycin (Verified Allergy, Unknown, 12/28/23) Current Medications Current Medications Medications (Trade) Dose Ordered Sig/Jens Route PRN Reason Start Time Stop Time Status Last Admin Amiodarone HCl 250 ml @ 33.333 mls/ hr Q7H30M IV 12/28/23 19:00 12/29/23 00:59 DC 12/28/23 19:00 Amiodarone HCl 250 ml @ 16.667 mls/ hr Q15H IV 12/29/23 01:00 12/29/23 01:09 Hydralazine HCl (Apresoline Injection) 10 mg Q6HP PRN IV SBP>150 12/28/23 21:15 Metoprolol Tartrate (Lopressor Tablet) 25 mg BID PO 12/28/23 22:00 12/29/23 09:53 Aspirin 81 mg DAILY PO 12/29/23 10:00 12/29/23 09:52 Vancomycin HCl 0 ml @ 0 mls/hr UD IV 12/28/23 21:15 Diagnostic Test (Pha) (Accu-Chek Comfort Curve T) 1 strip ACHS 12/28/23 22:00 12/29/23 11:31 Insulin Human Regular (InsuLIN R) HS SC 12/28/23 22:00 12/28/23 22:23 Insulin Human Regular (InsuLIN R) AC SC 12/29/23 07:00 12/29/23 12:22 Dextrose 50 ml UD PRN IV Blood Sugar LESS THAN 60 12/28/23 21:15 Sodium Chloride (Saline Lock Ns) 10 ml Q8HR IV 12/28/23 22:00 12/29/23 06:20 Acetaminophen/ Hydrocodone Bitart ([place] 5/325MG Tab) 1 tab Q4HP PRN PO MODERATE PAIN (4-6 PAIN SCALE) 12/28/23 21:15 Ondansetron HCl (Zofran) 4 mg Q4HP PRN IV NAUSEA / VOMITING 12/28/23 21:15 Docusate Sodium (Colace Capsule) 100 mg BIDPRN PRN PO FOR CONSTIPATION 12/28/23 21:15 Acetaminophen (Tylenol Tablet) 650 mg Q6HP PRN PO PAIN SCALE 1-3 OR TEMP>100.4 12/28/23 21:15 12/29/23 04:51 Metoprolol Tartrate (Lopressor) 5 mg Q5M IV 12/28/23 22:45 12/28/23 22:56 DC 12/28/23 22:55 Nitroglycerin (Ntrostat Sublingual) 0.4 mg Q5MINP PRN SL FOR CHEST PAIN 12/28/23 23:15 Morphine Sulfate 2 mg Q30M PRN IV FOR CHEST PAIN 12/28/23 23:15 Heparin Sodium/ Dextrose 250 ml @ 8 mls/hr Q24H IV 12/29/23 02:30 12/29/23 03:56 Ticagrelor (Brilinta) 90 mg BID PO 12/29/23 22:00 Family History: Patient reports no known family medical history. Review of Systems As per HPI, all other systems were reviewed and are negative H&P Exam Vital Signs/I&O Vital Sign Date Time Temp Pulse Resp B/P (MAP) Pulse Ox O2 Delivery O2 Flow Rate FiO2 12/29/23 09:53 109 154/71 12/29/23 02:30 19 95 Nasal Cannula* 3 32 12/28/23 23:47 98.7 98.7 Intake and Output 12/28/23 12/29/23 19:00 07:00 Intake Total 116 ml Balance 116 ml Intake Oral 0 ml IV Total 116 ml Physical Exam Gen: NAD HEENT: NC, AT Lungs: CTA b/l Cardiac: RRR, no murmur Abd: soft, no distention Ext: no edema + Left arm AVR, + thrill Labs/Diagnostic Data Labs/Diagnostic Data Laboratory Tests Test 12/29/23 11:35 12/29/23 10:05 12/29/23 06:30 12/29/23 05:35 Range/Units POC Glucose 252 H 189 H 70-106 mg/dl Prothrombin Time 11.2 9.3-11.8 sec Prothrombin Time INR 1.06 0.9-1.15 Activated Partial Thromboplast Time 42.6 H 24.5-34.5 SEC Hemoglobin A1c 8.4 H <5.7 % A1C Troponin I High Sensitivity 6679 *H 6445 *H </=34 ng/L White Blood Count 16.6 H 4.4-10.8 10^3/uL Red Blood Count 3.12 L 4.0-5.20 10^6/uL Hemoglobin 9.6 L 12.2-16.2 g/dL Hematocrit 29.6 L 36.0-46.0 % Mean Corpuscular Volume 94.9 80.0-100.0 fL Mean Corpuscular Hemoglobin 30.7 28.0-32.0 pg Mean Corpuscular Hemoglobin Concent 32.4 32.0-36.0 g/dL Red Cell Distribution Width 16.2 H 11.8-14.3 % Platelet Count 284 140-450 10^3/uL Mean Platelet Volume 7.6 6.9-10.8 fL Neutrophils (%) (Auto) 80.9 H 37.0-80.0 % Lymphocytes (%) (Auto) 10.3 10.0-50.0 % Monocytes (%) (Auto) 7.7 0.0-12.0 % Eosinophils (%) (Auto) 0.7 0.0-7.0 % Basophils (%) (Auto) 0.4 0.0-2.0 % Neutrophils # (Auto) 13.5 H 1.6-8.6 10 ^3/uL Lymphocytes # (Auto) 1.7 0.4-5.4 10 ^3/uL Monocytes # (Auto) 1.3 0-1.3 10 ^3/uL Eosinophils # (Auto) 0.1 0-0.8 10 ^3/uL Basophils # (Auto) 0.1 0-0.2 10 ^3/uL Nucleated Red Blood Cells 0.1 % Sodium Level 134 L 136-145 mmol/L Potassium Level 3.7 3.5-5.1 mmol/L Chloride Level 96 L 98-107 mmol/L Carbon Dioxide Level 27 20-31 mmol/L Anion Gap 11 5-15 Blood Urea Nitrogen 15 9-23 mg/dL Creatinine 2.87 #H 0.550-1.02 mg/dL Glomerular Filtration Rate Calc 16 >90 mL/min BUN/Creatinine Ratio 5.2 L 10.0-20.0 Serum Glucose 206 H 74-106 mg/dL Calcium Level 9.4 8.7-10.4 mg/dL Magnesium Level 1.9 1.6-2.6 mg/dL Total Bilirubin 0.2 0.2-1.0 mg/dL Aspartate Amino Transferase (AST) 117 H 13-40 U/L Alanine Aminotransferase (ALT) 66 H 7-40 U/L Alkaline Phosphatase 145 H 46-116 U/L B-Type Natriuretic Peptide 843.81 0-100 pg/mL Total Protein 7.5 5.7-8.2 g/dL Albumin 3.9 3.2-4.8 g/dL Triglycerides Level 189 H < 150 mg/dL Cholesterol Level 144 < 200 mg/dL LDL Cholesterol 79 < 100 mg/dL HDL Cholesterol 32 L 40-59 mg/dL Random Vancomycin Level 17.0 H 5-10 ug/mL Test 12/29/23 02:36 12/29/23 00:57 12/28/23 21:57 12/28/23 20:39 Range/Units White Blood Count 17.1 H 4.4-10.8 10^3/uL Red Blood Count 3.25 L 4.0-5.20 10^6/uL Hemoglobin 10.0 L 12.2-16.2 g/dL Hematocrit 30.2 L 36.0-46.0 % Mean Corpuscular Volume 92.8 80.0-100.0 fL Mean Corpuscular Hemoglobin 30.7 28.0-32.0 pg Mean Corpuscular Hemoglobin Concent 33.1 32.0-36.0 g/dL Red Cell Distribution Width 16.3 H 11.8-14.3 % Platelet Count 292 140-450 10^3/uL Mean Platelet Volume 7.5 6.9-10.8 fL Neutrophils (%) (Auto) 82.4 H 37.0-80.0 % Lymphocytes (%) (Auto) 9.1 L 10.0-50.0 % Monocytes (%) (Auto) 7.7 0.0-12.0 % Eosinophils (%) (Auto) 0.2 0.0-7.0 % Basophils (%) (Auto) 0.6 0.0-2.0 % Neutrophils # (Auto) 14.1 H 1.6-8.6 10 ^3/uL Lymphocytes # (Auto) 1.5 0.4-5.4 10 ^3/uL Monocytes # (Auto) 1.3 0-1.3 10 ^3/uL Eosinophils # (Auto) 0 0-0.8 10 ^3/uL Basophils # (Auto) 0.1 0-0.2 10 ^3/uL Nucleated Red Blood Cells 0.0 % Prothrombin Time 11.7 9.3-11.8 sec Prothrombin Time INR 1.11 0.9-1.15 Activated Partial Thromboplast Time 27.7 24.5-34.5 SEC Troponin I High Sensitivity 4762 *H 1318 *H </=34 ng/L POC Glucose 273 H 70-106 mg/dl Test 12/28/23 18:23 12/28/23 17:29 Range/Units White Blood Count 15.6 H 4.4-10.8 10^3/uL Red Blood Count 3.27 L 4.0-5.20 10^6/uL Hemoglobin 10.1 L 12.2-16.2 g/dL Hematocrit 30.1 L 36.0-46.0 % Mean Corpuscular Volume 92.0 80.0-100.0 fL Mean Corpuscular Hemoglobin 31.0 28.0-32.0 pg Mean Corpuscular Hemoglobin Concent 33.7 32.0-36.0 g/dL Red Cell Distribution Width 16.0 H 11.8-14.3 % Platelet Count 325 140-450 10^3/uL Mean Platelet Volume 7.1 6.9-10.8 fL Neutrophils (%) (Auto) 88.7 H 37.0-80.0 % Lymphocytes (%) (Auto) 4.9 L 10.0-50.0 % Monocytes (%) (Auto) 5.4 0.0-12.0 % Eosinophils (%) (Auto) 0.6 0.0-7.0 % Basophils (%) (Auto) 0.4 0.0-2.0 % Neutrophils # (Auto) 13.9 H 1.6-8.6 10 ^3/uL Lymphocytes # (Auto) 0.8 0.4-5.4 10 ^3/uL Monocytes # (Auto) 0.8 0-1.3 10 ^3/uL Eosinophils # (Auto) 0.1 0-0.8 10 ^3/uL Basophils # (Auto) 0.1 0-0.2 10 ^3/uL Nucleated Red Blood Cells 0.0 % Troponin I High Sensitivity 220 *H 99 *H </=34 ng/L Sodium Level 134 L 136-145 mmol/L Potassium Level 3.3 L 3.5-5.1 mmol/L Chloride Level 97 L 98-107 mmol/L Carbon Dioxide Level 28 20-31 mmol/L Anion Gap 9 5-15 Blood Urea Nitrogen 9 9-23 mg/dL Creatinine 2.09 H 0.550-1.02 mg/dL Glomerular Filtration Rate Calc 24 >90 mL/min BUN/Creatinine Ratio 4.3 L 10.0-20.0 Serum Glucose 175 H 74-106 mg/dL Calcium Level 9.5 8.7-10.4 mg/dL Magnesium Level 2.1 1.6-2.6 mg/dL Total Bilirubin 0.3 0.2-1.0 mg/dL Aspartate Amino Transferase (AST) 29 13-40 U/L Alanine Aminotransferase (ALT) < 9 7-40 U/L Alkaline Phosphatase 148 H 46-116 U/L Total Protein 7.0 5.7-8.2 g/dL Albumin 3.9 3.2-4.8 g/dL Thyroid Stimulating Hormone (TSH) 2.06 0.55-4.78 uIU/mL Assessment Assessment: ESRD on HD via Left arm AVF Afib with RVR Elevated troponin HTN COPD Anemia of CKD Metabolic acidosis Leukocytosis Hyponatremia Hypokalemia Plan: Next HD likely on Saturday on amiodarone drip on Heparin drip Continue Metoprolol 25 mg PO BID Cardiology consult JO post HD as needed to maintain MAP > 65 mmHg on empirical IV antibiotics Plan discussed with: Patient, Other TOR ALBERTS MD Dec 29, 2023 12:47
[2023-12-29] MEDS: MAGNESIUM SULFATE 1GM/100ML 100 ML IV ONE (14:52)
[2023-12-29] MEDS: METOPROLOL TARTRATE 1MG/1ML-5ML VIAL IV ONE (14:59)
[2023-12-29] MEDS ORDERED: METOPROLOL TARTRATE 1MG/1ML-5ML VIAL IV ONE ×3 (18:00→18:15)
[2023-12-29] MEDS: VANCOMYCIN 500 MG in D5W 5% 100 ML IV ONE (18:32)
[2023-12-29 20:23] LABS: INR 1.07 (0.9-1.15); Partial Thromboplastin Time 38.7 SEC (24.5-34.5); Prothrombin Time 11.3 sec (9.3-11.8)
[2023-12-29] MEDS: TICAGRELOR 90 MG TAB PO SCH (22:30)
--- NOTE | 2023-12-29 23:12 | DVHPN2 ---
Subjective The patient is seen and examined at bedside. No complaint today. Reviewed: Care Plan, H&P, Labs, Medications, Previous Orders, Radiology Changes from previous H/P or p: No Changes Eyes: No Pain, No Vision change, No Conjunctivae inflammation, No Eyelid inflammation, No Other, No Redness ENT: No Ear pain, No Ear discharge, No Nose pain, No Nose discharge, No Nose congestion, No Mouth pain, No Mouth swelling, No Throat pain, No Throat swelling, No Other Cardiovascular: No Chest Pain; Palpitations; No Orthopnea, No Paroxysmal Noc. Dyspnea, No Edema, No Lt Headedness, No Other Respiratory: No Cough, No Dry, No Shortness of breath, No SOB with excertion, No Wheezing, No Hemoptysis, No Pleuritic Pain, No Sputum, No Other Gastrointestinal: No Nausea, No Vomiting, No Abdominal Pain, No Diarrhea, No Constipation, No Melena, No Hematochezia, No Other Genitourinary: No Dysuria, No Frequency, No Incontinence, No Hematuria, No Retention, No Other Musculoskeletal: No other, No neck pain, No shoulder pain, No arm pain, No back pain, No hand pain, No leg pain, No foot pain Skin: No Rash, No Lesions, No Jaundice, No Bruising, No Other Objective Vitals Vital Signs Date Time Temp Pulse Resp B/P (MAP) Pulse Ox O2 Delivery O2 Flow Rate FiO2 12/29/23 21:14 98.7 76 19 115/38 (63) 100 98.7 12/29/23 19:30 Nasal Cannula* 3 32 Intake/Output Intake and Output 12/29/23 07:00 Intake Total 116 ml Balance 116 ml Intake Oral 0 ml IV Total 116 ml General Appearance: Alert, Cooperative, No acute distress HEENT: Atraumatic, PERRLA, EOMI, Mucous membr. moist/pink Neck: Supple Lungs: Clear to auscultation, Normal air movement Cardiovascular: Regular rate, Normal S1, Normal S2, No murmurs, Gallops, Rubs Abdomen: Normal bowel sounds, Soft, No tenderness Extremities: No tenderness/swelling Neuro: Cranial nerves 3-12 NL Psych/Mental Status: Mental status NL Medications Current Medications Medications Dose Ordered Sig/Jens Route Start Time Stop Time Status Last Admin Dose Admin Amiodarone HCl 250 ml @ 16.667 mls/ hr Q15H IV 12/29/23 01:00 12/29/23 16:19 16.667 MLS/HR Hydralazine HCl 10 mg Q6HP PRN IV 12/28/23 21:15 Metoprolol Tartrate 25 mg BID PO 12/28/23 22:00 12/29/23 09:53 25 MG Aspirin 81 mg DAILY PO 12/29/23 10:00 12/29/23 09:52 81 MG Vancomycin HCl 0 ml @ 0 mls/hr UD IV 12/28/23 21:15 Diagnostic Test (Pha) 1 strip ACHS 12/28/23 22:00 12/29/23 18:12 1 STRIP Insulin Human Regular HS SC 12/28/23 22:00 12/28/23 22:23 6 UNITS Insulin Human Regular AC SC 12/29/23 07:00 12/29/23 18:12 6 UNITS Dextrose 50 ml UD PRN IV 12/28/23 21:15 Sodium Chloride 10 ml Q8HR IV 12/28/23 22:00 12/29/23 14:39 10 ML Acetaminophen/ Hydrocodone Bitart 1 tab Q4HP PRN PO 12/28/23 21:15 Ondansetron HCl 4 mg Q4HP PRN IV 12/28/23 21:15 Docusate Sodium 100 mg BIDPRN PRN PO 12/28/23 21:15 Acetaminophen 650 mg Q6HP PRN PO 12/28/23 21:15 12/29/23 04:51 650 MG Nitroglycerin 0.4 mg Q5MINP PRN SL 12/28/23 23:15 Morphine Sulfate 2 mg Q30M PRN IV 12/28/23 23:15 Ticagrelor 90 mg BID PO 12/29/23 22:00 Heparin Sodium/ Dextrose 250 ml @ 12 mls/hr [id number] IV 12/29/23 21:15 Laboratory Results Laboratory Tests 12/29/23 06:30 Chemistry Test 12/29/23 06:30 Albumin 3.9 g/dL (3.2-4.8) Calcium Level 9.4 mg/dL (8.7-10.4) Magnesium Level 1.9 mg/dL (1.6-2.6) Total Protein 7.5 g/dL (5.7-8.2) Coagulation Test 12/29/23 02:36 12/29/23 10:05 12/29/23 19:45 Prothrombin Time 11.7 sec (9.3-11.8) 11.2 sec (9.3-11.8) 11.3 sec (9.3-11.8) Prothrombin Time INR 1.11 (0.9-1.15) 1.06 (0.9-1.15) 1.07 (0.9-1.15) Activated Partial Thromboplast Time 27.7 SEC (24.5-34.5) 42.6 SEC (24.5-34.5) H 38.7 SEC (24.5-34.5) H Lipid panel Test 12/29/23 06:30 Cholesterol Level 144 mg/dL (< 200) HDL Cholesterol 32 mg/dL (40-59) L Triglycerides Level 189 mg/dL (< 150) H Cardiac Markers Test 12/29/23 06:30 B-Type Natriuretic Peptide 843.81 pg/mL (0-100) LFT Test 12/29/23 06:30 Alanine Aminotransferase (ALT) 66 U/L (7-40) H Alkaline Phosphatase 145 U/L (46-116) H Aspartate Amino Transferase (AST) 117 U/L (13-40) H Total Bilirubin 0.2 mg/dL (0.2-1.0) HgA1c, TSH Test 12/29/23 10:05 Hemoglobin A1c 8.4 % A1C (<5.7) H Microbiology Microbiology Date/Time Source Procedure Growth Status 12/29/23 06:40 Nose MRSA Screen - Final Complete Labs and/or images reviewed: Labs reviewed by me Assessment/Plan Assessment/Plan Atrial fibrillation with RVR Hypokalemia Generalized weakness Leukocytosis, unspecified End-stage renal disease on hemodialysis Continuing current management. Continuing with and amiodarone drip. Replace potassium as needed. PT to get the patient out of bed and ambulate. Continuing dialysis per schedule. Plan discussed with: Patient My Orders Orders - JOB DEAN MD Procedure Category Date Status Time Code Status CODE 12/29/23 Transmitted 13:38 Date of Service: Dec 29, 2023 Billing Provider: JOB DEAN MD Common Visit Codes: 25588-[id number] INP/OBS CARE(HIGH) JOB DEAN MD Dec 29, 2023 23:12
[2023-12-30 01:00] VITALS: BP 142/27; PULSE 72; RESP 18; TEMP 98.4; O2SAT 98
[2023-12-30 03:04] LABS: Basophils # (auto) 0.1 10 ^3/uL (0-0.2); Basophils % (auto) 0.4 % (0.0-2.0); Eosinophils # (auto) 0.4 10 ^3/uL (0-0.8); Eosinophils % (auto) 2.2 % (0.0-7.0); Hematocrit 27.7 % (36.0-46.0); Hemoglobin 9.1 g/dL (12.2-16.2); Lymphocytes # (auto) 1.8 10 ^3/uL (0.4-5.4); Lymphocytes % (auto) 10.5 % (10.0-50.0); Mean Corpuscular Hemoglobin 30.8 pg (28.0-32.0); Mean Corpuscular Hgb Conc. 32.6 g/dL (32.0-36.0); Mean Corpuscular Volume 94.4 fL (80.0-100.0); Monocytes # (auto) 1.2 10 ^3/uL (0-1.3); Monocytes % (auto) 7.4 % (0.0-12.0); Neutrophils # (auto) 13.4 10 ^3/uL (1.6-8.6); Neutrophils % (auto) 79.5 % (37.0-80.0); Platelet Count (auto) 277 10^3/uL (140-450); Red Blood Cells 2.94 10^6/uL (4.0-5.20); Red Cell Distribution Width 16.3 % (11.8-14.3); White Blood Cell 16.8 10^3/uL (4.4-10.8)
[2023-12-30 03:28] LABS: INR 1.08 (0.9-1.15); Prothrombin Time 11.4 sec (9.3-11.8)
[2023-12-30 03:41] LABS: Partial Thromboplastin Time 90.2 SEC (24.5-34.5)
[2023-12-30] MEDS ORDERED: HEPARIN DRIP/D5W 100UNITS/ML 250 ML IV SCH (04:15)
[2023-12-30] MEDS: HEPARIN DRIP/D5W 100UNITS/ML 250 ML IV SCH (04:58)
[2023-12-30 05:18] VITALS: BP 146/36; PULSE 73; RESP 18; TEMP 98.3; O2SAT 100
[2023-12-30 08:00] VITALS: PULSE 75; RESP 16; O2SAT 99
[2023-12-30 09:00] VITALS: BP 151/58; PULSE 75; RESP 16; TEMP 97.8; O2SAT 99
--- NOTE | 2023-12-30 09:55 | DVHSR ---
APPROVED REPORT EXAM: Two-dimensional and M-mode echocardiogram with Doppler, color Doppler and Bubble Study. Blood Pressure: 154/71 mmHg INDICATION Atrial Fibrillation RISK FACTORS Height: 5'2", Weight: 149 DIMENSIONS LVDd3.8 (3.8-5.7cm)LA (2D)4.7 (1.9-4.0cm)Aortic Root3.4 (2.0-3.7cm) LVDs3.1 (2.5-4.0cm)LA (MM) (1.9-4.0cm)Aortic Cusp Exc0.7 (1.5-2.0cm) EF (%) 35.0 (55-70%)Rt. Atrium5.2 (1.9-4.0cm)Asc. Aorta cm IVSd1.8 (0.7-1.1cm)RV (D)3.6 (1.8-2.4cm) PWd1.5 (0.7-1.1cm) Mitral Valve MitralMitral Stenosis E wave1.34m/sMV Mean GR.mmHg E/A ratio0.02D MVAcm2 Aortic Valve Aortic ValveAortic Stenosis V10.97m/Minh Mean GR.7mmHg V21.88m/Minh Peak GR.14mmHg LVOT Diameter2.0 (1.8-2.4cm)Doppler AVA1.62cm2 Pulmonic Valve V20.83m/s Tricuspid Valve TR Velocity3.25m/s [id number] ATRIA Injection of bubbles documented. Conclusion Severely dilated left ventricle, moderately concentric left ventricular hypertrophy. Severely reduce d left ventricular systolic function estimated ejection fraction of 30%. There is global wall hypoki nesia. There is grade one diastolic dysfunction. Normal right ventricular size and dimension. Moderately reduced left ventricular systolic function.. Moderate to severe elevation right ventricular systolic pressure at 57 mm of Hg Normal biatrial size and dimension. Normal aortic valve structure and function. Normal mitral valve structure and function. Normal tricuspid valve structure and function. The pulmonary valve is grossly normal. Bubble study shows no evidence of intra-atrial shunting No pericardial effusion.
[2023-12-30] MEDS ORDERED: AMLO1TAB22 PO (10:19)
--- NOTE | 2023-12-30 11:07 | DVHPN2 ---
Consult Progress Note Date Seen: Dec 30, 2023 Subjective Review of Systems: CVS:Normal, RESPIRATORY:Normal, MSK:Abnormal, NEURO:Normal Other Systems: C/o bilateral hand pain. Successful transition in NSR Objective vital signs Vital Sign Date Time Temp Pulse Resp B/P (MAP) Pulse Ox O2 Delivery O2 Flow Rate FiO2 12/30/23 05:18 98.3 73 18 146/36 (72) 100 98.3 12/29/23 19:30 Nasal Cannula* 3 32 Total Intake and Output 12/29/23 12/29/23 12/30/23 15:00 23:00 07:00 Intake Total 76 ml 1050 ml 1040 ml Output Total 0 ml 0 ml Balance 76 ml 1050 ml 1040 ml medications Current Medications Medications Dose Ordered Sig/Jens Route Start Time Stop Time Status Last Admin Dose Admin Amiodarone HCl 250 ml @ 16.667 mls/ hr Q15H IV 12/29/23 01:00 12/30/23 06:11 16.667 MLS/HR Hydralazine HCl 10 mg Q6HP PRN IV 12/28/23 21:15 Metoprolol Tartrate 25 mg BID PO 12/28/23 22:00 12/29/23 22:30 25 MG Aspirin 81 mg DAILY PO 12/29/23 10:00 12/29/23 09:52 81 MG Vancomycin HCl 0 ml @ 0 mls/hr UD IV 12/28/23 21:15 Diagnostic Test (Pha) 1 strip ACHS 12/28/23 22:00 12/30/23 06:13 1 STRIP Insulin Human Regular HS SC 12/28/23 22:00 12/29/23 22:30 6 UNITS Insulin Human Regular AC SC 12/29/23 07:00 12/30/23 06:11 6 UNITS Dextrose 50 ml UD PRN IV 12/28/23 21:15 Sodium Chloride 10 ml Q8HR IV 12/28/23 22:00 12/29/23 22:30 10 ML Acetaminophen/ Hydrocodone Bitart 1 tab Q4HP PRN PO 12/28/23 21:15 Ondansetron HCl 4 mg Q4HP PRN IV 12/28/23 21:15 Docusate Sodium 100 mg BIDPRN PRN PO 12/28/23 21:15 Acetaminophen 650 mg Q6HP PRN PO 12/28/23 21:15 12/29/23 04:51 650 MG Nitroglycerin 0.4 mg Q5MINP PRN SL 12/28/23 23:15 Morphine Sulfate 2 mg Q30M PRN IV 12/28/23 23:15 Ticagrelor 90 mg BID PO 12/29/23 22:00 12/29/23 22:30 90 MG Heparin Sodium/ Dextrose 250 ml @ 9 mls/hr Q24H IV 12/30/23 05:00 12/30/23 04:58 9 MLS/HR Examination: LUNGS:Normal, CVS:Normal (NSR), NEURO:Normal laboratory and microbiology Laboratory Tests 12/30/23 02:51 12/29/23 06:30 Test 12/29/23 06:30 Range/Units Serum Glucose 206 H 74-106 mg/dL Problem List/Assessment/Plan Problem List/Assessment/Plan Paroxysmal atrial fibrillation with rapid ventricular rate, Stage III, new onset NSTEMI, likely type 2 secondary to above Chronic compensated congestive HFrEF Coronary artery disease status post PTCA x3 AZUL Hypertension Dyslipidemia Insulin-dependent diabetes mellitus ESRD on HD Obesity Plan/Recommendation (Dr. Keller) Patient presents with new onset atrial fibrillation with rapid ventricular rate successfully transitioned into a sinus rhythm. Transition from amiodarone drip to amiodarone p.o. Transition from heparin drip to low-dose Eliquis ([id number]- VASc Score 7, HAS-BLED Score 3). Continue single-antiplatelet therapy with Brilinta, lipid lowering agent, and beta-floyd given history of CAD with recent stent placement three weeks ago. Rate control, continue beta-floyd as tolerated. Transthoracic echocardiogram revealed EF 30% RVSP 57 mmHg. Initiate GDMT for CHF as tolerated for ESRD. Likely NSTEMI Type II as the patient presents with newly diagnosed tachyarrhythmia and cardiac symptom free with no discernible ischemia on ECG. Follow-up with primary Manager Work in [place] within 1-2 weeks post-discharge. Kindly call if in need to re-consult. Thank you for allowing us to participate in this patient's care. This medical document was created using an electronic medical record system with voice recognition software and computerized dictation system. Although this document has been carefully reviewed, there might still be some phonetic and typographical errors. Occasional wrong-word or ``sound-alike substitutions may have occurred due to the inherent limitations of voice recognition software. These areas are purely typographical due to imperfections of the software programs and do not reflect any compromise in the patient's medical care. Please read the chart carefully and recognize, using context, where these substitutions have occurred. Plan discussed with: Patient, Other Date of Service: Dec 30, 2023 Billing Provider: MICHAEL KELLER MD Cardiology Common Codes: [id number] [facility](CAR[facility] Mayen [facility] Dec 30, 2023 11:07
--- NOTE | 2023-12-30 11:43 | DVHDS2 ---
Discharge Summary Date of Admission Dec 28, 2023 at 23:15 Date of Discharge: Dec 30, 2023 Admitting Diagnosis Atrial fibrillation with RVR Hypokalemia Generalized weakness Leukocytosis, unspecified End-stage renal disease on hemodialysis Labs/Diagnostic Data: Laboratory Results Test 12/30/23 11:16 12/30/23 05:24 12/30/23 02:51 12/29/23 10:05 POC Glucose 235 mg/dl (70-106) White Blood Count 16.8 10^3/uL (4.4-10.8) Red Blood Count 2.94 10^6/uL (4.0-5.20) Hemoglobin 9.1 g/dL (12.2-16.2) Hematocrit 27.7 % (36.0-46.0) Mean Corpuscular Volume 94.4 fL (80.0-100.0) Mean Corpuscular Hemoglobin 30.8 pg (28.0-32.0) Mean Corpuscular Hemoglobin Concent 32.6 g/dL (32.0-36.0) Red Cell Distribution Width 16.3 % (11.8-14.3) Platelet Count 277 10^3/uL (140-450) Mean Platelet Volume 7.8 fL (6.9-10.8) Neutrophils (%) (Auto) 79.5 % (37.0-80.0) Lymphocytes (%) (Auto) 10.5 % (10.0-50.0) Monocytes (%) (Auto) 7.4 % (0.0-12.0) Eosinophils (%) (Auto) 2.2 % (0.0-7.0) Basophils (%) (Auto) 0.4 % (0.0-2.0) Neutrophils # (Auto) 13.4 10 ^3/uL (1.6-8.6) Lymphocytes # (Auto) 1.8 10 ^3/uL (0.4-5.4) Monocytes # (Auto) 1.2 10 ^3/uL (0-1.3) Eosinophils # (Auto) 0.4 10 ^3/uL (0-0.8) Basophils # (Auto) 0.1 10 ^3/uL (0-0.2) Nucleated Red Blood Cells 0.0 % Creatinine 4.01 mg/dL (0.550-1.02) Glomerular Filtration Rate Calc 11 mL/min (>90) Troponin I High Sensitivity 4037 ng/L (</=34) Random Vancomycin Level 19.7 ug/mL (5-10) Hemoglobin A1c 8.4 % A1C (<5.7) Test 12/29/23 06:30 12/28/23 17:29 Sodium Level 134 mmol/L (136-145) Potassium Level 3.7 mmol/L (3.5-5.1) Chloride Level 96 mmol/L (98-107) Carbon Dioxide Level 27 mmol/L (20-31) Anion Gap 11 (5-15) Blood Urea Nitrogen 15 mg/dL (9-23) BUN/Creatinine Ratio 5.2 (10.0-20.0) Serum Glucose 206 mg/dL (74-106) Calcium Level 9.4 mg/dL (8.7-10.4) Magnesium Level 1.9 mg/dL (1.6-2.6) Total Bilirubin 0.2 mg/dL (0.2-1.0) Aspartate Amino Transferase (AST) 117 U/L (13-40) Alanine Aminotransferase (ALT) 66 U/L (7-40) Alkaline Phosphatase 145 U/L (46-116) B-Type Natriuretic Peptide 843.81 pg/mL (0-100) Total Protein 7.5 g/dL (5.7-8.2) Albumin 3.9 g/dL (3.2-4.8) Triglycerides Level 189 mg/dL (< 150) Cholesterol Level 144 mg/dL (< 200) LDL Cholesterol 79 mg/dL (< 100) HDL Cholesterol 32 mg/dL (40-59) Thyroid Stimulating Hormone (TSH) 2.06 uIU/mL (0.55-4.78) Other Laboratory Tests 12/30/23 02:51 12/29/23 06:30 Brief Hx & Hospital Course: This is an 78 years old female with past medical history of diabetes, COPD, hypertension and end-stage renal disease on hemodialysis came to emergency department because of her palpitation. The patient was at dialysis center and they removed 500 mL and suddenly she went hypotension with diastolic blood pressure at 30. EMS was called. And new when paramedics came her EKG showed atrial fibrillation with RVR. The patient was admitted. The patient was started on amiodarone drip and also heparin drip. Plumber Gasfitter see the patient and did a 2D echo. Echo showed: Severely dilated left ventricle , moderately concentric left ventricular hypertrophy. Severely reduced left ventricular systolic function estimated ejection fraction of 30%. There is global wall hypokinesia. There is grade one diastolic dysfunction. Normal right ventricular size and dimension. Moderately reduced left ventricular systolic function.. Moderate to severe elevation right ventricular systolic pressure at 57 mm of Hg. Normal biatrial size and dimension. Normal aortic valve structure and function. Normal mitral valve structure and function. Normal tricuspid valve structure and function. The pulmonary valve is grossly normal. Bubble study shows no evidence of intra-atrial shunting. No pericardial effusion. The patient subsequently was switched to oral Eliquis in the low dose at 2.5 mg twice per day and also amiodarone 200 mg twice per day. The patient also was instructed to continuing Brilinta and beta floyd. Today the patient did not have hypotension. The patient feels better. The patient received dialysis during this hospitalization. This patient will be discharged home. Continuing hemodialysis outpatient as per schedule. Follow up with primary care physician 1-2 weeks. Follow up with sap bpc developer per schedule. Diet renal diet. Activity as tolerated. Physical exam: HEENT: Normocephalic atraumatic pupils equal react to light and accommodation. Extraocular muscles intact, conjunctiva pink, oropharynx moist, no thrush, no exudate. Lymphatic: No lymphadenopathy Cardiovascular exam: S1, S2 was heard. No murmurs, rubs, gallops Lung: Clear on auscultation bilaterally, no wheeze, rale, rhonchi. GI: Abdominal soft, nondistended, nontenderness, positive bowel sounds. Extremity: No crepitus, cyanosis, edema. Pedal pulses present bilateral. Full range of motion. Skin: Normal turgor, no rash. Psych: Alert, oriented x3. Neurology: No focal deficits, cranial nerve II to XII grossly intact. Condition at Discharge: Stable Final Diagnosis/Problems List Atrial fibrillation with RVR, rate control now. NSTEMI type 2 Chronic compensate CHF Hypokalemia Generalized weakness Leukocytosis, unspecified End-stage renal disease on hemodialysis DM type 2 Discharge Disposition: Home Discharge Instruct/Medications Diet: Consistent carbohydrate, Cardiac 2g Na,low cholest Activity: No Restrictions, As Tolerated Follow Up/Referral: pcp 1-2 weeks sap bpc developer/in [place] per schedule Discharge Statement: "Patient was advised to return to the ER or call 911 if any headaches, dizziness, shortness of breath, chest pain, abdominal pain, bleeding, fevers, or worsening of medical condition. Patient was counseled about treatment plan, medications, possible side effects, patientverbalized understanding. All questions were answered to the best of my ability. This discharge took greater then 30 minutes in planning, reviewing documentation, counseling the patient, and discussing with other team members." ASSESSMENT ASSESSMENT Assessment Afib with RVR Date of Service: Dec 30, 2023 Billing Provider: JOB DEAN MD Common Visit Codes: 21366-EGA/OBS DISCH DAY >30min JOB DEAN MD Dec 30, 2023 11:43
[2023-12-30 11:46] LABS: INR 1.03 (0.9-1.15); Partial Thromboplastin Time 27.6 SEC (24.5-34.5); Prothrombin Time 10.9 sec (9.3-11.8)
[2023-12-30 13:00] VITALS: BP 154/58; PULSE 72; RESP 16; TEMP 98; O2SAT 96
[2023-12-30] MEDS: AMIODARONE HCL 200 MG TAB PO ONE (13:26)
[2023-12-30] MEDS: APIXABAN 5 MG TAB PO ONE (13:26)
--- NOTE | 2023-12-30 13:52 | ECG ---
[facility] Test Date: 2023-12-28 Test Time: 17:03:48 Pat Name: SARAH LEE Department: er Room: 0296T Gender: F Occupational Hygienist: yaz : 1945 Requested By: FAITH BUTLER Order Number: [id number] Reading MD: Measurements Intervals [place] Rate: 161 P: 0 ND: 174 QRS: 5 QRSD: 98 T: 196 QT: 282 QTc: 462 Interpretive Statements Supraventricular tachycardia Multiple premature complexes, vent & supraven Abnormal R-wave progression, late transition LVH with secondary repolarization abnormality ST depression, probably rate related Baseline wander in lead(s) I,aVL Please click the below link to view image of tracing.
[2023-12-30] MEDS ORDERED: APIX2.5T PO (15:22)
[2023-12-30] MEDS ORDERED: AMIO200T13 PO (15:22)
--- NOTE | 2023-12-30 17:33 | DVHPN2 ---
Progress Note - Dictate Date Seen: Dec 30, 2023 Medical Necessity Reason Pt with a Central, PICC or Fol: No Subjective no acute issues overnight vital signs Vital Sign Date Time Temp Pulse Resp B/P (MAP) Pulse Ox O2 Delivery O2 Flow Rate FiO2 12/30/23 13:00 98.0 72 16 154/58 (90) 96 98.0 12/30/23 08:00 Nasal Cannula* 3 32 Total Intake and Output 12/29/23 12/29/23 12/30/23 15:00 23:00 07:00 Intake Total 76 ml 1050 ml 1040 ml Output Total 0 ml 0 ml Balance 76 ml 1050 ml 1040 ml medications Current Medications Medications Dose Ordered Sig/Jens Route Start Time Stop Time Status Last Admin Dose Admin Hydralazine HCl 10 mg Q6HP PRN IV 12/28/23 21:15 Metoprolol Tartrate 25 mg BID PO 12/28/23 22:00 12/30/23 10:30 25 MG Vancomycin HCl 0 ml @ 0 mls/hr UD IV 12/28/23 21:15 Diagnostic Test (Pha) 1 strip ACHS 12/28/23 22:00 12/30/23 13:04 1 STRIP Insulin Human Regular HS SC 12/28/23 22:00 12/29/23 22:30 6 UNITS Insulin Human Regular AC SC 12/29/23 07:00 12/30/23 13:08 12 UNITS Dextrose 50 ml UD PRN IV 12/28/23 21:15 Sodium Chloride 10 ml Q8HR IV 12/28/23 22:00 12/30/23 14:44 10 ML Acetaminophen/ Hydrocodone Bitart 1 tab Q4HP PRN PO 12/28/23 21:15 Ondansetron HCl 4 mg Q4HP PRN IV 12/28/23 21:15 Docusate Sodium 100 mg BIDPRN PRN PO 12/28/23 21:15 Acetaminophen 650 mg Q6HP PRN PO 12/28/23 21:15 12/29/23 04:51 650 MG Nitroglycerin 0.4 mg Q5MINP PRN SL 12/28/23 23:15 Morphine Sulfate 2 mg Q30M PRN IV 12/28/23 23:15 Ticagrelor 90 mg BID PO 12/29/23 22:00 12/30/23 10:29 90 MG Amiodarone HCl 200 mg Q12HR PO 12/30/23 22:00 Apixaban 2.5 mg BID PO 12/30/23 22:00 Sacubitril/ Valsartan 1 tab BID PO 12/30/23 22:00 objective Gen: NAD HEENT: NC, AT Lungs: CTA b/l Cardiac: RRR, no murmur Abd: soft, no distention Ext: no edema + Left arm AVR, + thrill laboratory and microbiology Laboratory Tests 12/30/23 02:51 12/29/23 06:30 Test 12/29/23 06:30 Range/Units Serum Glucose 206 H 74-106 mg/dL Problem List ESRD on HD via Left arm AVF Afib with RVR [ new onset] Elevated troponin HTN COPD Anemia of CKD Metabolic acidosis Leukocytosis Hyponatremia Hypokalemia Assessment/Plan Plan: Next HD on Saturday switched amiodarone drip to PO Started Eliquis . Continue Brilinta Plan discussed with: HERON Wells MD Dec 30, 2023 17:33
[2023-12-30 17:44] VITALS: BP 157/54; PULSE 78; RESP 18; TEMP 98.1; O2SAT 99
[2023-12-30] MEDS ORDERED: AMIODARONE HCL 200 MG TAB PO SCH (22:00)
[2023-12-30] MEDS ORDERED: SACUBITRIL-VALSARTAN 24mg/26mg TAB PO SCH (22:00)
[2023-12-30] MEDS ORDERED: APIXABAN 5 MG TAB PO SCH (22:00)
== END 2023-12-30 18:32 | disposition home or self-care (01) | DRG 280 ==
LOC: ER 17:06 → EDBD 17:06 → TELE 23:15 → TELE-WESTW 23:16
PROVIDERS: ADMIT Nurse Practitioner Family; ATTEND Internal Medicine
DX: I48.0 Paroxysmal atrial fibrillation (principal); N18.6 End stage renal disease; I21.4 Non-ST elevation (NSTEMI) myocardial infarction; E87.1 Hypo-osmolality and hyponatremia; E87.20 Acidosis, unspecified; I13.2 Hypertensive heart and chronic kidney disease with heart failure and with stage 5 chronic kidney disease, or end stage renal disease; I50.22 Chronic systolic (congestive) heart failure; I95.3 Hypotension of hemodialysis; D63.1 Anemia in chronic kidney disease; D72.829 Elevated white blood cell count, unspecified; E11.22 Type 2 diabetes mellitus with diabetic chronic kidney disease; E11.42 Type 2 diabetes mellitus with diabetic polyneuropathy; E66.9 Obesity, unspecified; E78.5 Hyperlipidemia, unspecified; E87.6 Hypokalemia; I25.10 Atherosclerotic heart disease of native coronary artery without angina pectoris; J44.9 Chronic obstructive pulmonary disease, unspecified; Z88.0 Allergy status to penicillin; Z95.5 Presence of coronary angioplasty implant and graft; Z79.4 Long term (current) use of insulin; Z99.2 Dependence on renal dialysis; Z68.27 Body mass index [BMI] 27.0-27.9, adult; Z88.1 Allergy status to other antibiotic agents; Z79.899 Other long term (current) drug therapy
CPT/HCPCS: 36415; 71045; 80053; 80061; 80202; 82565; 82962; 83036; 83735; 83880; 84443; 84484; 85025; 85610; 85730; 87040; 87081; 93005; 93306; 99291; G0378; J1815; J7060